=== PATIENT | male | born 1975 | race Caucasian/White ===

== ENCOUNTER 2024-04-28 17:49 | Emergency (ER) | payer OTHER, SELFPAY ==
[2024-04-28 17:54] VITALS: BP 128/82
--- NOTE | 2024-04-28 18:04 | ED.GENMED ---
ED Provider Triage
<Vanessa Andrews PA-C - Last Filed: 04/28/24 18:06>
-
Patient seen by provider in Triage?: Seen in Triage
48-year-old male presents with multiple complaints after falling off of a roof. 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 Patient says he slipped and fell onto his left side. He has mostly left shoulder and left
flank and rib pain. He did not the wind out of him self. He believes he did hit his head but did not lose consciousness. This happened about 2 hours ago. Patient mostly has left shoulder pain and left flank pain. He does have a bruise or
abrasion to his left shoulder. He is not having any vomiting or change in mental status. He is not on any blood thinners. On exam the patient is awake and alert with GCS of 15, no midline cervical spine tenderness, no signs of head trauma,
abrasion to the left shoulder with full range of motion, tenderness to the left ribs without any obvious ecchymosis, no midline CT or L-spine tenderness
Will workup with a trauma scan and x-rays
A medical screening examination has been initiated by a qualified medical provider. Based on the assessment performed at this time, it has been determined that an emergent medical condition may exist and the patient has been informed that further
medical evaluation and possible additional diagnostic testing may be needed.
HPI: This is a medical evaluation conducted in person to initiate diagnostic evaluation and provide initial therapeutics. Please see further documentation by the treating clinician.
GENERAL: Alert , in no apparent distress
ENT: No visible abnormalities
LUNGS: No acute respiratory distress
NEUROLOGICAL: Alert and oriented
SKIN: Skin intact. No visible changes.
MUSCULOSKELETAL: Moving extremities normally
PSYCH: Normal and appropriate interaction.
History of Present Illness
<Vanessa Andrews PA-C - Last Filed: 04/28/24 18:06>
General
Chief Complaint: Fall
Time Seen by Provider: 04/28/24 18:14
<EVIE Dawn - Last Filed: 04/29/24 02:02>
General
Source: patient
Exam Limitations: none
History of Present Illness
History of Present Illness:
This is a 48 year old male that comes in with c/o fall off a roof. 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 States that he thinks he hit a air conditioner box on the way down from the next unit. States that he landed on the
left side. States that his shoulder hurts, forearm and rib area. States that he is unsure if he had any LOC as the wind was knocked out of him. States that he has a slight headache. Denies any fever, chills, chest pain, SOB, abd pain, nausea,
vomiting, diarrhea, dizziness, urinary burning.
Past History
<Vanessa Andrews PA-C - Last Filed: 04/28/24 18:06>
Past History
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
ED Past Surgical History: Cholecystectomy and Orthopedic
Social History
Alcohol: None
Drug: None
Personal:
Living: with family
Employment: Employed
<EVIE Dawn - Last Filed: 04/29/24 02:02>
Past History
ED Past Surgical History: Cholecystectomy and Orthopedic (Bilateral carpal tunnel, Left hand tendon repair, )
Social History
Tobacco: Non-smoker
Alcohol: Occasional
Review of Systems
<EVIE Dawn - Last Filed: 04/29/24 02:02>
Review of Systems
All Other Systems: ROS reviewed and negative except as documented in HPI and ROS
Constitutional: Reports no symptoms; Denies fever or chills
EENT: Reports no symptoms
Respiratory: Reports other (left sided rib tenderness); Denies cough or trouble breathing
Cardiac: Reports no symptoms; Denies chest pain
ABD/GI: Reports no symptoms; Denies abdominal pain, nausea, vomiting or diarrhea
: Reports no symptoms; Denies dysuria, frequency or urgency
Musculoskeletal: Reports joint pain (Left shoulder discomfort.) and other (Left forearm discomfort. Left rib tendernesss); Denies neck pain
Skin: Reports no symptoms
Neurological: Reports headache; Denies dizzy
Psychiatric: Reports no symptoms
Phy Exam
<EVIE Dawn - Last Filed: 04/29/24 02:02>
General Physical Exam
General Presentation: well appearing and no apparent distress
General age: appears stated age
General Skin: warm and dry
General Habitus: normal
General Mental: alert
General Hydration: appears well hydrated
ENT Exam
ENT Exam: TM's normal, pharynx normal and other (Negative for any cervical neck tenderness)
Eye Exam
Eye Exam: EOMI
Cardiovascular Exam
Cardiovascular Exam: regular rate/rhythm, no edema, no murmur and normal peripheral pulses
Pulmonary Exam
Pulmonary Exam: lungs clear, no respiratory distress, no rales, chest non tender, no crackles, no rhonchi, no wheezing and no cough
Gastrointestinal Exam
Gastrointestinal Exam: normal bowel sounds, non tender, soft, no organomegaly, no pulsatile mass and non distended
Musculoskeletal Exam
Musculoskeletal Exam: full ROM and other (left forarm tenderness with palpation, Patient able to flex elbow without discomfort. Tenderness over the AC joint left shoulder, Negative discomfort with flexion of the knee, inversion or eversion)
Skin Exam
Skin Exam: normal color, warm/dry, no rash, no petechia and other (Abrasion left shoulder and left hilton)
Psychiatric Exam
Psychiatric Exam: normal mood/affect
Course
<Vanessa Andrews PA-C - Last Filed: 04/28/24 18:06>
Orders/Labs/Results
Orders:
Orders
04/28/24 18:01
CT Cervical Spine W/o Iv Contr Urgent
Comment:
Reason For Exam: neck pain fall off roof
CT Chest/abd/pel W Iv Cont Urgent
Comment:
Reason For Exam: fall off roof left flankn pain
Cardiac Monitoring- Treatment ONCE
04/28/24 18:02
CT Head W/o Iv Contrast Urgent
Comment:
Reason For Exam: fall off roof
04/28/24 18:03
Forearm, Left 2 View [CR Forearm - Left 2 View] Urgent
Comment:
Reason For Exam: left forearm pain after fall
Shoulder, Left, Trauma CR [CR Shoulder, Trauma - Left] Urgent
Comment:
Reason For Exam: left shulder pain fall off roof
04/28/24 18:06
Type+Screen Urgent
Complete Blood Count/With Diff Urgent
Comprehensive Metabolic Panel Urgent
PTT Urgent
Prothrombin Time Urgent
04/28/24 18:35
ABO2 Urgent
BBK Wristband Number:
Associate notified that ABO2 has been ordered: [id number]
Date: 04/28/24
Time: 18:20
[employer] ID: [id number]
04/28/24 19:27
Acetaminophen 1000MG/100Ml [Ofirmev] 1,000 mg in 100 ml IV ONCE
Acetaminophen IV Indication:: ED Narcotic Naive Pt-ONCE
04/28/24 19:36
Electrocardiogram (*1) Urgent
Reason for Study: Other
Other Reason for Exam: hit left chest with 8 foot fall
EKG- Treatment ONCE
Abnormal Lab Results
04/28/24
18:06
MCH 32.4 H pg
(27.0-31.0)
Lymphocytes % 20.1 L %
(20.5-51.1)
Glucose 101 H mg/dl
(70-99)
04/28/24 18:06
04/28/24 18:06
Vital Signs
Initial and Last Documented VS:
Initial Vital Signs
Temp Pulse Resp BP Pulse Ox
99.4 F 81 16 128/82 98
04/28/24 17:54 04/28/24 17:54 04/28/24 17:54 04/28/24 17:54 04/28/24 17:54
Last Documented Vital Signs
Temp Pulse Resp BP Pulse Ox
99.4 F 134 18 126/76 97
04/28/24 17:54 04/28/24 19:30 04/28/24 19:30 04/28/24 19:14 04/28/24 19:30
<EVIE Dawn - Last Filed: 04/29/24 02:02>
Orders/Labs/Results
Orders:
Orders
04/28/24 18:01
CT Cervical Spine W/o Iv Contr Urgent
Comment:
Reason For Exam: neck pain fall off roof
CT Chest/abd/pel W Iv Cont Urgent
Comment:
Reason For Exam: fall off roof left flankn pain
Cardiac Monitoring- Treatment ONCE
04/28/24 18:02
CT Head W/o Iv Contrast Urgent
Comment:
Reason For Exam: fall off roof
04/28/24 18:03
Forearm, Left 2 View [CR Forearm - Left 2 View] Urgent
Comment:
Reason For Exam: left forearm pain after fall
Shoulder, Left, Trauma CR [CR Shoulder, Trauma - Left] Urgent
Comment:
Reason For Exam: left shulder pain fall off roof
04/28/24 18:06
Type+Screen Urgent
Complete Blood Count/With Diff Urgent
Comprehensive Metabolic Panel Urgent
PTT Urgent
Prothrombin Time Urgent
04/28/24 18:35
ABO2 Urgent
BBK Wristband Number:
Associate notified that ABO2 has been ordered: [id number]
Date: 04/28/24
Time: 18:20
[employer] ID: [id number]
04/28/24 19:27
Acetaminophen 1000MG/100Ml [Ofirmev] 1,000 mg in 100 ml IV ONCE
Acetaminophen IV Indication:: ED Narcotic Naive Pt-ONCE
04/28/24 19:36
Electrocardiogram (*1) Urgent
Reason for Study: Other
Other Reason for Exam: hit left chest with 8 foot fall
EKG- Treatment ONCE
Abnormal Lab Results
04/28/24
18:06
MCH 32.4 H pg
(27.0-31.0)
Lymphocytes % 20.1 L %
(20.5-51.1)
Glucose 101 H mg/dl
(70-99)
04/28/24 18:06
04/28/24 18:06
glucose nonfasting. Otherwise labs normal. PT 14.1 with INR 1.04, PTT 26.6
Vital Signs
Initial and Last Documented VS:
Initial Vital Signs
Temp Pulse Resp BP Pulse Ox
99.4 F 81 16 128/82 98
04/28/24 17:54 04/28/24 17:54 04/28/24 17:54 04/28/24 17:54 04/28/24 17:54
Last Documented Vital Signs
Temp Pulse Resp BP Pulse Ox
99.4 F 134 18 126/76 97
04/28/24 17:54 04/28/24 19:30 04/28/24 19:30 04/28/24 19:14 04/28/24 19:30
<EVIE Dawn - Last Filed: 04/29/24 02:02>
MDM/Problems Addressed
Differential Diagnosis Includes:
accidental fall, Rib fractures, AC separation, Cervical spine fracture. Subdural hematoma.
MDM/Problems Addressed:
This is a 48 year old male that comes in after falling off a roof. States that he fell about 8 feet and landed on the left side. States that he has shoulder discomfort, left forearm discomfort. States that he is not sure if he had any LOC that it
just knocked the wind out of him.
Will check labs. CT head , cervical spine , chest, abd pelvis. Will give IV Tylenol for pain.
Back into see patient. Explained that his Shoulder is negative for any fracture along with the forearm. Patient was made aware earlier that the CT head, cervical spine and chest/abd/pelvis is all normal. Explained to patient that he will be more
sore tomorrow then today. Ice to any area that is sore. Follow up with the PCP as needed. Tylenol 1000mg every 6 hours and Ibuprofen 600mg every 6 hours with food. Return with any concerns.
Chronic conditions affecting care:
NA
Acute Exacerbation and/or Progression of Chronic Illness:
NA
<EVIE Dawn - Last Filed: 04/29/24 02:02>
*Radiology
Radiology exam reviewed: radiology read reviewed (CT head and cervical spine-No acute intracranial abnormality noted. No acute fracture or subluxation of the cervical spine. CT chest/Abd/Pelvis-No significant acute abnormality identified in the
chest, abd or pelvis. As described above. Forearm-No acute fracture or dislocation. ) and all reviewed NAD by ED Provider (Forearm cont- Partially visualized regional joints are grossly intact. Soft tissues are grossly unremarkable. Left
shoulder-No acute fractures)
*EKG
Interpreted by ED Provider?: Yes
Heart Rate: 76
Rate: normal
Rhythm: sinus
[place]: normal axis
Interval: normal interval
QRS Pattern: normal QRS
Ischemia: no ischemia
*Mush[employer] Interpretation
Rate: normal
Heart Rate: 82
*Critical Care Note
Total Time (30-74mins, 75-104mins- exclusive of procedures): Not Applicable
ED Attending Note
<Vanessa Andrews PA-C - Last Filed: 04/28/24 18:06>
-
Portions of this chart may have been created with voice recognition software.� Occasional wrong word or��sound alike� substitutions may have occurred due to the inherent limitations of voice recognition software.
Discharge Plan
Departure
Patient Disposition: Home (Routine Discharge)
Date of Disposition: 04/28/24
Time of Disposition: 20:25
Patient with high blood pressure during this ER visit?: No
Condition: Good
Covid-19: Not Applicable
Discharge Problem:
Fall from roof
Instructions: Skin Abrasions (DC), Preventing Falls ED
Prescriptions:
No Action
multivitamin [Daily Vitamin] 1 EACH tablet
1 ea PO DAILY
sertraline 25 MG tablet
25 mg PO DAILY
azithromycin 1 GM packet
1 gm PO DAILY Qty: 1 0RF
Referrals:
Frieda Pelletier, DO [Family Provider] - As needed
Stand Alone Forms: Return to Work
Activity Restrictions/Additional Instructions:
As discussed, your CT of the head, cervical spine, chest/abdomen / pelvis are all normal. Your X-ray of the left shoulder is negative for any fractures along with the Forearm. You will be more sore tomorrow then today. Ice to any area that is sore.
Tylenol 1000mg every 6 hour and alternate with Ibuprofen 600mg every 6 hours with food for pain. Follow up with the family doctor as needed for recheck. IF YOU HAVE HEADACHE NOT RELIEVED BY TYLENOL, VOMITING MORE THEN TWICE, ANY CHANGE IN MENTAL
STATUS OR YOU HAVE ANY OTHER COMPLAINTS PLEASE RETURN TO THE EMERGENCY ROOM.
Interventions
Interventions:
*Risk Screen - Suicide Last Done: 04/28/24 17:54
*General Assessment Last Done: 04/28/24 17:54
*Neglect/Abuse Screening Last Done: 04/28/24 17:54
*Nursing Disposition Last Done: 04/28/24 20:39
ED-Musculoskeletal Assessment Last Done: 04/28/24 18:16
ED- Neurological Assessment Last Done: 04/28/24 18:16
ED-Skin Assessment Last Done: 04/28/24 18:16
Discharge Date and Time
Discharge Date/Time: 04/28/24 20:42
Print Language: HEBREW
[2024-04-28 18:15] VITALS: BP 129/82
[2024-04-28 18:16] VITALS: BMI 28.3
[2024-04-28 18:18] LABS: % Basophils 0.2 % (0-2); % Eosinophils 0.2 % (0-6); % Immature Granulocytes 0.5 % (0-0.5); % Lymphocytes 20.1 % (20.5-51.1); % Monocytes 6.9 % (1.7-9.3); % Neutrophils 72.1 % (42.2-75.2); Absolute Lymphocytes 1.8 10^3/uL (1.2-3.4); Absolute Monocytes 0.6 10^3/uL (0.1-0.6); Absolute Neutrophils 6.3 10^3/uL (1.4-6.5); Hematocrit 42.9 % (39.0-52.0); Hemoglobin 15.3 g/dL (13.0-18.0); Mean Corp Hgb Conc. 35.7 g/dL (33.0-37.0); Mean Corpuscular Hgb 32.4 pg (27.0-31.0); Mean Corpuscular Volume 90.9 fL (80.0-94.0); Mean Platelet Volume 9.7 fL (7.4-10.4); Nucleated Red Blood Cells % 0 % (-); Platelet Count 226 10^3/uL (130-400); Red Blood Cell Count 4.72 10^6/uL (4.70-6.10); Red Cell Dist. Width 12.2 % (11.5-14.5); White Blood Cell Count 8.8 10^3/uL (4.8-10.8)
[2024-04-28 18:28] LABS: INR 1.04; PT 14.1 Sec (11.4-14.6)
[2024-04-28 18:29] LABS: APTT 26.6 Sec (23.4-35.0)
[2024-04-28 18:36] LABS: ALT (SGPT) 22 U/L (0-50); AST (SGOT) 26 U/L (17-59); Albumin 4.9 g/dl (3.5-5.0); Alkaline Phosphatase 54 U/L (38-126); Blood Urea Nitrogen 18 mg/dl (9-20); Calcium 9.6 mg/dl (8.4-10.2); Carbon Dioxide 29 mmol/L (22-30); Chloride 106 mmol/L (98-107); Estimated Creatinine Clearance 79 ml/min; Glucose 101 mg/dl (70-99); Sodium 142 mmol/L (135-145); Total Bilirubin 0.5 mg/dl (0.2-1.3); Total Protein 7.8 g/dl (6.3-8.2); eGFR > 60.00
[2024-04-28 19:14] VITALS: BP 126/76
[2024-04-28] MEDS: OFIRMEV 100 IV (19:33)
== END 2024-04-28 20:42 | disposition home or self-care (01) ==
LOC: EMR 17:49
PROVIDERS: Physician Assistant; EMERGENCY PHYSICIAN Emergency Medicine; FAMILY PHYSICIAN Internal Medicine
DX: R51.9 Headache, unspecified (principal); W13.2XXA Fall from, out of or through roof, initial encounter; E11.9 Type 2 diabetes mellitus without complications; G47.33 Obstructive sleep apnea (adult) (pediatric); Z90.49 Acquired absence of other specified parts of digestive tract
CPT/HCPCS: 99284; 70450; 71260; 72125; 73030; 73090; 74177; 80053; 85025; 85610; 85730; 86850; 86900; 86901; 93005; Q9967

== ENCOUNTER 2024-07-05 11:29 | Emergency (ER) | payer OTHER, SELFPAY ==
[2024-07-05 11:35] VITALS: BP 164/111
[2024-07-05 13:01] LABS: % Basophils 0.3 % (0-2); % Eosinophils 0.2 % (0-6); % Immature Granulocytes 0.2 % (0-0.5); % Lymphocytes 29.5 % (20.5-51.1); % Monocytes 6.9 % (1.7-9.3); % Neutrophils 62.9 % (42.2-75.2); Absolute Lymphocytes 1.8 10^3/uL (1.2-3.4); Absolute Monocytes 0.4 10^3/uL (0.1-0.6); Absolute Neutrophils 3.9 10^3/uL (1.4-6.5); Hematocrit 44.1 % (39.0-52.0); Hemoglobin 15.8 g/dL (13.0-18.0); Mean Corp Hgb Conc. 35.8 g/dL (33.0-37.0); Mean Corpuscular Hgb 32.4 pg (27.0-31.0); Mean Corpuscular Volume 90.4 fL (80.0-94.0); Mean Platelet Volume 9.1 fL (7.4-10.4); Nucleated Red Blood Cells % 0 % (-); Platelet Count 223 10^3/uL (130-400); Red Blood Cell Count 4.88 10^6/uL (4.70-6.10); Red Cell Dist. Width 11.9 % (11.5-14.5); White Blood Cell Count 6.2 10^3/uL (4.8-10.8)
--- NOTE | 2024-07-05 13:05 | ED.GENMED ---
History of Present Illness
General
Chief Complaint: Headache
Source: patient
Time Seen by Provider: 07/05/24 12:27
History of Present Illness
History of Present Illness:
48-year-old male with past medical history of anxiety presenting to the ER for evaluation of a couple of symptoms with the first noted symptom being headache that has been ongoing for 'months, not any different today, bifrontal, constant but waxes
and wanes in intensity, dull aching sensation, not relieved with NSAIDs and accompanied with nasal congestion/sinus pressure. Patient decided to come to the ER today because last night he also had some chest discomfort which is reportedly resolved
at time of my examination. Patient also notes that his blood pressure is usually within normal limits so he was surprised by the blood pressure in triage. Patient felt that he may have had cold-like symptoms over the last month and has been using
a nasal decongestant spray twice a day for the last month. He does state that the nasal congestion spray seems to be the only thing that gives him some form of relief.
Past History
Past History
ED Past Medical History: Psychiatric (Anxiety) and Other (ROB)
ED Past Surgical History: Cholecystectomy and Orthopedic (Bilateral carpal tunnel, Left hand tendon repair, )
Social History
Tobacco: Non-smoker
Alcohol: Occasional
Drug: None
Personal:
Living: with family
Employment: Employed
Review of Systems
Review of Systems
All Other Systems: ROS reviewed and negative except as documented in HPI and ROS
Phy Exam
Physical Exam
Physical Exam:
GENERAL: Alert , in no apparent distress
HEAD: Normocephalic atraumatic
EYE: conjunctiva clear
NECK: Supple, no significant adenopathy.
ENT: o/p clr, mmm. TMs clear bilaterally, no effusions. Edematous nasal turbinates bilateral but no polyps. No tonsillar edema or exudates
CARDIAC: Regular rate and rhythm
LUNGS: Clear breath sounds bilaterally, no acute respiratory distress, no wheezes/rales/rhonchi
NEUROLOGICAL: Alert and oriented
SKIN: Warm and dry, skin intact.
MUSCULOSKELETAL: well perfused.
PSYCH: Normal and appropriate interaction.
Scores
Heart Failure Risk
Heart Failure Risk Score: Not Applicable
Heart Score for Chest Pain Patients
STEMI patient?: Not applicable
Withdrawal Assessment of Alcohol
Withdrawal Assessment Completed?: Not applicable
Course
Orders/Labs/Results
Orders:
Orders
07/05/24 11:38
EKG [Electrocardiogram (*1)] Urgent
Reason for Study: Chest Pain
EKG- Treatment ONCE
07/05/24 12:47
Complete Blood Count/With Diff Urgent
Comprehensive Metabolic Panel Urgent
Troponin I Urgent
Abnormal Lab Results
07/05/24
12:47
MCH 32.4 H pg
(27.0-31.0)
07/05/24 12:47
07/05/24 12:47
Vital Signs
Initial and Last Documented VS:
Initial Vital Signs
Temp Pulse Resp BP Pulse Ox
98.6 F 94 18 164/111 100
07/05/24 11:35 07/05/24 11:35 07/05/24 11:35 07/05/24 11:35 07/05/24 11:35
Last Documented Vital Signs
Temp Pulse Resp BP Pulse Ox
98.6 F 75 16 137/89 100
07/05/24 11:35 07/05/24 13:13 07/05/24 13:13 07/05/24 13:13 07/05/24 13:13
MDM/Problems Addressed
Differential Diagnosis Includes:
Pretense of urgency, sinusitis, rebound nasal congestion secondary to extensive recent nasal decongestant spray, less concern for ACS, less concern for any intracranial pathology given patient had a recent which was unremarkable
MDM/Problems Addressed:
48-year-old male presenting to the ER for evaluation of headache that has been ongoing for months and chest discomfort which started last night. Found to be hypertensive in triage. Chest pain currently resolved. EKG done on arrival is
nonischemic. Patient recently here about 2 months ago after he had a fall from a roof and was trauma scanned with no abnormalities found at time of that scan. Headache is not any different today. Certainly could be related to the elevated blood
pressure however given recent CT scan and no change in the headache I am less suspicious for any acute intracranial pathology. Will check labs including troponin and repeat patient's blood pressure. Anticipate discharge home with outpatient
follow-up with primary care provider.
*Pulse Oximetry
Patient hypoxic: no
*EKG
Heart Rate: 86
Rate: normal
Rhythm: sinus
[place]: normal axis
Ischemia: no ischemia
*Critical Care Note
Total Time (30-74mins, 75-104mins- exclusive of procedures): Not Applicable
Data Reviewed
Review of Other/Old Records Reveals: Records and Radiology Studies
Patient Management
Social determinants of health affecting care: Living situation and Strong social support
Escalation/DeEscalation of care consider admission/obs:
Repeat blood pressure significantly improved. Labs all reassuring. Patient's significant other works at a primary care office as a nurse practitioner and will ensure close follow-up as an outpatient. I do suspect patient's symptoms are most
likely related to his extensive use of nasal decongestions and strongly encourage patient discontinue this as soon as possible. Patient otherwise stable for discharge home.
ED Attending Note
-
Portions of this chart may have been created with voice recognition software.� Occasional wrong word or��sound alike� substitutions may have occurred due to the inherent limitations of voice recognition software.
Discharge Plan
Departure
Patient Disposition: Home (Routine Discharge)
Date of Disposition: 07/05/24
Time of Disposition: 13:26
Patient with high blood pressure during this ER visit?: Yes
Discharge Problem:
Headache, Chest pain
Instructions: Headache, Adult (DC)
Prescriptions:
No Action
multivitamin [Daily Vitamin] 1 EACH tablet
1 ea PO DAILY
sertraline 25 MG tablet
25 mg PO DAILY
azithromycin 1 GM packet
1 gm PO DAILY Qty: 1 0RF
Referrals:
Frieda Pelletier DO [Family Provider] -
Interventions
Interventions:
*Risk Screen - Suicide Last Done: 07/05/24 11:48
*General Assessment Last Done: 07/05/24 11:48
*Neglect/Abuse Screening Last Done: 07/05/24 11:48
ED- Fall Risk Assessment Last Done: 07/05/24 13:43
*ED COVID-19 Vaccine History Last Done: 07/05/24 11:48
*Nursing Disposition Last Done: 07/05/24 13:43
ED- Neurological Assessment Last Done: 07/05/24 11:48
Discharge Date and Time
Discharge Date/Time: 07/05/24 13:43
Print Language: [id number]
[2024-07-05 13:13] VITALS: BP 137/89
[2024-07-05 13:15] LABS: ALT (SGPT) 18 U/L (0-50); AST (SGOT) 20 U/L (17-59); Albumin 4.9 g/dl (3.5-5.0); Alkaline Phosphatase 62 U/L (38-126); Blood Urea Nitrogen 15 mg/dl (9-20); Calcium 9.5 mg/dl (8.4-10.2); Carbon Dioxide 23 mmol/L (22-30); Chloride 105 mmol/L (98-107); Glucose 95 mg/dl (70-99); Potassium 4.3 mmol/L (3.5-5.1); Sodium 139 mmol/L (135-145); Total Bilirubin 1.2 mg/dl (0.2-1.3); Total Protein 7.3 g/dl (6.3-8.2); eGFR > 60.00
[2024-07-05 13:22] LABS: Troponin I < 0.012 ng/ml
== END 2024-07-05 13:43 | disposition home or self-care (01) ==
LOC: EMR 11:29
PROVIDERS: Physician Assistant Medical; EMERGENCY PHYSICIAN Emergency Medicine; FAMILY PHYSICIAN Internal Medicine
DX: R51.9 Headache, unspecified (principal); R07.9 Chest pain, unspecified; F41.9 Anxiety disorder, unspecified; R03.0 Elevated blood-pressure reading, without diagnosis of hypertension
CPT/HCPCS: 99284; 80053; 84484; 85025; 93005